=== PATIENT | male | born 1975 | race Two or more races ===

== ENCOUNTER 2021-11-25 23:22 | Emergency (ER) | payer OTHER ==
[~2021-11-25] VITALS: Ht 177.8 cm; Wt 73.0 kg
[2021-11-25 23:41] VITALS: BP 119/100
[2021-11-25] MEDS ORDERED: CLON-592 PO (23:41)
[2021-11-25] MEDS ORDERED: DICL100G51 TP (23:41)
[2021-11-25] MEDS ORDERED: OXYC10TA59 PO (23:41)
[2021-11-26] MEDS ORDERED: IBUPROFEN 600 MG TABLET PO ONE
== END 2021-11-26 01:57 ==
LOC: EDBD 23:24 → EMS 23:24
DX: R53.1 Weakness (principal); G89.29 Other chronic pain; F17.210 Nicotine dependence, cigarettes, uncomplicated; Z88.8 Allergy status to other drugs, medicaments and biological substances; Z79.899 Other long term (current) drug therapy
CPT/HCPCS: 99283